=== PATIENT | female | born 1975 | race Caucasian/White ===

== ENCOUNTER 2021-03-07 14:59 | Outpatient (REF) | payer OTHER, SELFPAY ==
[2021-03-07 15:38] LABS: MANUAL DIFF FLAG NO
[2021-03-07 15:47] LABS: Basophils Percent Auto 0.8 % (0-2); Eosinophils Absolute Auto 0.1 X10*3/uL (0.0-0.4); Eosinophils Percent Auto 1.4 % (0-4); Hematocrit 42.6 % (37-47); Hemoglobin 13.8 g/dl (12.0-16.0); Imm Gran Abs Auto 0.01 X10*3/uL (0.00-0.03); Imm Gran Pct Auto 0.2 % (0.0-0.4); Lymphocytes Absolute Auto 1.4 X10*3/uL (1.2-4.9); Lymphocytes Percent Auto 28.3 % (20-40); Mean Corpuscular HGB Conc 32.4 g/dl (31.0-35.0); Mean Corpuscular Hemoglobin 30.9 pg (27.0-33.0); Mean Corpuscular Volume 95.5 fL (80-98); Mean Platelet Volume 11.2 fL (9.4-12.3); Monocytes Absolute Auto 0.4 X10*3/uL (0.1-1.2); Monocytes Percent Auto 7.9 % (2-11); Neutrophils Percent Auto 61.4 % (45-73); Platelet Count 221 X10*3/uL (160-400); Red Blood Count 4.46 X10*6/uL (4.20-5.50); Red Cell Distribution Width 12.3 % (11.0-16.0)
[2021-03-07 16:18] LABS: Calcium 9.7 mg/dL (8.4-10.2); Iron 135 mcg/dL (30-160); Percent Iron Saturation 41 % (15-50); Total Iron Binding Capacity 329 mcg/dL (228-428); Unsaturated Iron Binding 194 ug/dL
[2021-03-07 16:41] LABS: Ferritin 98 ng/mL (10-250); Thyroid Stimulating Hormone 0.48 uIU/mL (0.32-4.0); Vitamin D 25-OH Total 33.5 ng/mL (>30)
[2021-03-07 16:45] LABS: Folate 16.3 ng/mL (> or = 4.0); Vitamin B12 261 pg/mL (200-900)
[2021-03-07 17:22] LABS: T4 Thyroxine 6.6 ug/dL (4.5-12.0)
[2021-03-11 12:12] LABS: Triiodothyronine T3 Reverse 17 ng/dL (8-25)
== END 2021-03-07 15:00 | disposition home or self-care (01) ==
LOC: HO.LAB 14:59
PROVIDERS: Visit Provider Psychiatry & Neurology Neurology
DX: G43.909 Migraine, unspecified, not intractable, without status migrainosus (principal)
CPT/HCPCS: 36415; 82306; 82310; 82607; 82728; 82746; 83540; 84436; 84443; 84482; 85025; 86140

== ENCOUNTER 2023-04-27 10:48 | Outpatient (REF) | payer OTHER, SELFPAY ==
[2023-04-27 11:09] LABS: MANUAL DIFF FLAG NO
[2023-04-27 11:53] LABS: Basophils Percent Auto 0.6 % (0-2); Eosinophils Absolute Auto 0.1 X10*3/uL (0.0-0.4); Eosinophils Percent Auto 1.3 % (0-4); Hemoglobin 12.9 g/dl (12.0-16.0); Imm Gran Abs Auto 0.01 X10*3/uL (0.00-0.03); Imm Gran Pct Auto 0.2 % (0.0-0.4); Lymphocytes Absolute Auto 1.3 X10*3/uL (1.2-4.9); Lymphocytes Percent Auto 27.8 % (20-40); Mean Corpuscular HGB Conc 33.1 g/dl (31.0-35.0); Mean Corpuscular Hemoglobin 31.4 pg (27.0-33.0); Mean Corpuscular Volume 94.9 fL (80.0-98.0); Mean Platelet Volume 11.2 fL (9.4-12.3); Monocytes Absolute Auto 0.4 X10*3/uL (0.1-1.2); Monocytes Percent Auto 8.6 % (2-11); Neutrophils Absolute Auto 2.9 x10*3/uL (2.0-8.3); Neutrophils Percent Auto 61.5 % (45-73); Platelet Count 228 X10*3/uL (160-400); Red Blood Count 4.11 X10*6/uL (4.20-5.50); Red Cell Distribution Width 12.1 % (11.0-16.0); White Blood Count 4.7 X10*3/uL (4.8-10.8)
[2023-04-27 12:40] LABS: Anion Gap 10 (12-20); Blood Urea Nitrogen 11 mg/dL (9-16); Calcium 9.7 mg/dL (8.4-10.2); Carbon Dioxide 28 mmol/L (22-29); Chloride 106 mmol/L (96-108); Estimated Glomerular Filt Rate > 60; Glucose Random 89 mg/dL (60-115); Sodium 140 mmol/L (135-145)
[2023-04-27 12:50] LABS: T4 Thyroxine 7.4 ug/dL (4.5-12.0); Thyroid Stimulating Hormone 0.49 uIU/mL (0.32-4.0)
== END 2023-04-27 10:49 | disposition home or self-care (01) ==
LOC: HO.LAB 10:48
PROVIDERS: Visit Provider Psychiatry & Neurology Neurology
DX: E03.9 Hypothyroidism, unspecified (principal)
CPT/HCPCS: 36415; 80048; 84436; 84443; 85025

== ENCOUNTER 2023-08-11 14:13 | Outpatient (REF) | payer OTHER, SELFPAY ==
[2023-08-11 16:08] LABS: Ferritin 85 ng/mL (10-250); Thyroid Stimulating Hormone 0.35 uIU/mL (0.32-4.0)
[2023-08-11 16:22] LABS: Folate 13.3 ng/mL (> or = 4.0); Vitamin B12 1093 pg/mL (200-900)
[2023-08-11 20:47] LABS: Erythrocyte Sedimentation Rate 8 MM/HR (0-20)
[2023-08-13 04:53] LABS: Lyme Abs Screen <0.90 index
[2023-08-16 10:38] LABS: Anti Nuclear Antibody Screen NEGATIVE (NEGATIVE)
== END 2023-08-11 14:14 | disposition home or self-care (01) ==
LOC: HO.LAB 14:13
PROVIDERS: Visit Provider Psychiatry & Neurology Neurology
DX: G37.9 Demyelinating disease of central nervous system, unspecified (principal); D64.9 Anemia, unspecified; E03.9 Hypothyroidism, unspecified
CPT/HCPCS: 36415; 82550; 82607; 82728; 82746; 84443; 85652; 86038; 86140; 86617; 86618

== ENCOUNTER 2024-03-08 14:54 | Outpatient (REF) | payer OTHER, SELFPAY ==
[2024-03-08 15:22] LABS: MANUAL DIFF FLAG NO
[2024-03-08 15:41] LABS: Basophils Percent Auto 0.8 % (0-2); Eosinophils Absolute Auto 0.1 X10*3/uL (0.0-0.4); Eosinophils Percent Auto 1.5 % (0-4); Hematocrit 40.9 % (37.0-47.0); Hemoglobin 13.5 g/dl (12.0-16.0); Imm Gran Abs Auto 0.01 X10*3/uL (0.00-0.03); Imm Gran Pct Auto 0.2 % (0.0-0.4); Lymphocytes Absolute Auto 1.8 X10*3/uL (1.2-4.9); Lymphocytes Percent Auto 34.1 % (20-40); Mean Corpuscular Hemoglobin 30.6 pg (27.0-33.0); Mean Corpuscular Volume 92.7 fL (80.0-98.0); Mean Platelet Volume 10.4 fL (9.4-12.3); Monocytes Absolute Auto 0.5 X10*3/uL (0.1-1.2); Monocytes Percent Auto 8.8 % (2-11); Neutrophils Absolute Auto 2.9 x10*3/uL (2.0-8.3); Neutrophils Percent Auto 54.6 % (45-73); Platelet Count 259 X10*3/uL (160-400); Red Blood Count 4.41 X10*6/uL (4.20-5.50); Red Cell Distribution Width 12.1 % (11.0-16.0); White Blood Count 5.3 X10*3/uL (4.8-10.8)
[2024-03-08 16:19] LABS: Alanine Aminotransferase 23 U/L (0-31); Albumin Level 4.6 g/dL (3.5-5.0); Alkaline Phosphatase 74 U/L (39-117); Aspartate Amino Transferase 18 U/L (5-31); Bilirubin Direct 0.1 mg/dL (0.0-0.5); Bilirubin Total 0.4 mg/dL (0.0-1.0); Total Protein 7.7 g/dL (6.5-8.0)
[2024-03-08 16:34] LABS: T4 Thyroxine 8.3 ug/dL (4.5-12.0)
[2024-03-08 16:35] LABS: Erythrocyte Sedimentation Rate 14 MM/HR (0-20)
[2024-03-08 16:48] LABS: Folate 13.7 ng/mL (> or = 4.0); Vitamin B12 1449 pg/mL (200-900)
[2024-03-09 21:22] LABS: Lyme Abs Screen <0.90 index
[2024-03-10 15:09] LABS: Anti Nuclear Antibody Screen NEGATIVE (NEGATIVE)
== END 2024-03-08 14:55 | disposition home or self-care (01) ==
LOC: HO.LAB 14:54
PROVIDERS: Visit Provider Psychiatry & Neurology Neurology
DX: G43.709 Chronic migraine without aura, not intractable, without status migrainosus (principal); B02.9 Zoster without complications; D51.0 Vitamin B12 deficiency anemia due to intrinsic factor deficiency
CPT/HCPCS: 36415; 80076; 82607; 82746; 84436; 85025; 85652; 86038; 86617; 86618

== ENCOUNTER 2025-07-12 12:08 | Outpatient (REF) | payer OTHER, SELFPAY ==
[2025-07-12 15:33] LABS: Iron 106 mcg/dL (30-160); Percent Iron Saturation 39 % (15-50); Total Iron Binding Capacity 273 mcg/dL (228-428); Unsaturated Iron Binding 167 ug/dL
[2025-07-12 15:42] LABS: Ferritin 136 ng/mL (10-250)
[2025-07-13 05:58] LABS: Lyme Abs Screen <0.90 index
[2025-07-19 11:48] LABS: Anti Nuclear Antibody Screen NEGATIVE (NEGATIVE)
== END 2025-07-12 12:09 | disposition home or self-care (01) ==
LOC: HO.LAB 12:08
PROVIDERS: Referring Provider Internal Medicine; Visit Provider Psychiatry & Neurology Neurology
DX: Z01.84 Encounter for antibody response examination (principal); G43.709 Chronic migraine without aura, not intractable, without status migrainosus; M79.7 Fibromyalgia; G93.32 Myalgic encephalomyelitis/chronic fatigue syndrome; Z79.899 Other long term (current) drug therapy; Z79.82 Long term (current) use of aspirin
CPT/HCPCS: 36415; 82728; 83540; 84443; 85652; 86038; 86039; 86141; 86617; 86618

== ENCOUNTER 2025-07-12 12:08 | Outpatient (AMB) | payer OTHER, MEDICAID, SELFPAY ==
--- NOTE | 2025-07-12 12:58 | MHC.OFFVIS ---
Intake Visit Reasons: 5M MIGRAINE Allergies ondansetron (From Zofran) Allergy (Unknown, Verified 06/07/25 11:45) Unknown prochlorperazine (From Compazine) Allergy (Unknown, Verified 06/07/25 11:45) Unknown Medication List - Last Reconciled 07/12/25 by Beatrice Gordon MD pauqeihoem-[id number]-[id number] 50-325-40 mg 1 tab PO Q8H 30 days cyanocobalamin (vitamin B-12) 1,000 mcg subcut QWEEK lorazepam 1 mg PO BID PRN 30 days onabotulinumtoxinA (Botox) IM ubrogepant (Ubrelvy) mg PO HPI Comments Details: 49 yr woman with chronic migraines. She comes in with multiple complaints of feeling anxious and nervous having difficulty driving feeling things moving too fast also feeling hot and and frantic and does not know if it is psychological or something else is going on. She had a hormones tested which apparently were unremarkable she is not sure if she had her thyroid checked. Some of her inflammatory markers were elevated in the past but have not been checked recently. She is also losing her hair. Sleep is disturbed and she is having nightmares and sleep is broken up. Appetite is okay but she feels nauseated a lot. No change in her medications. Current migraine frequency is increased with 2 bad ones a month and most days she feels she might start to have a migraine. The Ubrelvy p.r.n. is taking longer to work. She has not had a Botox in 2 years. She is getting a lot of joint pains also. She gets a tention type headache about 4 days a week [facility] Medical History (Updated 07/12/25 @ 13:05 by Beatrice Gordon MD) Demyelinating disease Hypothyroidism Anxiety Chronic fatigue Tension headache Dizziness Fibromyalgia Hallucinations Migraine Review of Systems Const Details: ?Sleep:? Difficulty getting to sleepdenies.? Difficulty maintaining sleepdenies?.? Urge to move legsdenies.? Teeth grindingdenies.? Shouting or Kicking during sleepdenies.? Abnormal behavior during sleepdenies.? Excessive sleepdenies.? Snoringdenies.? Daytime sleepinessdenies. ???General/Constitutional:? Change in appetitedenies.? Chillsdenies.? Fatiguedenies.? Feverdenies.? Weight gaindenies.? Weight lossadmits. ???Ophthalmologic:? Blurred visiondenies.? Diminished visual acuitydenies. ???ENT:? Stuffinessdenies.? Decreased hearingdenies.? Dry mouthdenies.? Ear paindenies.? Nosebleeddenies.? Ringing in the earsdenies.? Sinus paindenies.? Sore throatdenies.? Swollen glandsdenies. ???Endocrine:? Cold intolerancedenies.? Excessive thirstdenies.? Frequent urinationdenies.? Heat intolerancedenies. ???Respiratory:? Shortness of breathdenies.? Chest paindenies.? Coughdenies. ???Breast:? Breast lumpdenies.? Nipple dischargedenies. ???Cardiovascular:? Chest pain at restdenies.? Chest pain with exertiondenies.? Claudicationdenies.? Dizzinessdenies.? Fluid accumulation in the legsdenies.? Irregular heartbeatdenies.? Palpitationsdenies. ???Gastrointestinal:? Abdominal paindenies.? Constipationdenies.? Diarrheadenies.? Difficulty swallowingdenies.? Heartburndenies.? Nauseadenies.? Rectal bleedingdenies. ???Hematology:? Easy bruisingdenies.? Prolonged bleedingdenies. ???Genitourinary:? Frequent urinationdenies.? Urgencydenies.? Incontinencedenies.? Erectile Dysfunctiondenies. ???Musculoskeletal:? Neck paindenies.? Back paindenies.? Muscle achesdenies.? Painful jointsdenies.? Sciaticadenies.? Weaknessdenies. ???Podiatric:? Difficulty walkingdenies.? Foot numbnessdenies. ???Neurologic:? Difficulty swallowingdenies.? Balance difficultydenies.? Coordinationnormal.? Difficulty speakingdenies.? Dizzinessdenies.? Faintingdenies.? Gait abnormalitydenies.? Headacheadmits.? Loss of strengthdenies.? Loss of use of extremitydenies.? Low back paindenies.? Memory lossdenies.? Seizuresdenies.? Ticsdenies.? Tingling/Numbnessdenies.? Transient loss of visiondenies.? Tremordenies. ???Psychiatric:? Anxietyadmits.? Auditory/visual hallucinationsdenies.? Delusionsdenies.? Depressed mooddenies.? Stressorsdenies.? Substance abusedenies.? Suicidal thoughtsdenies. Physical Exam Neuro Other: Neurological: Abnormal neurological findings:??none.?Mental Status:??alert and oriented X 3,?Normal attention, orientation, memory and affect.?Cranial Nerves:??Pupils are equal, round and reactive to light. Fundoscopy shows normal disc bilaterally. External occular muscles are intact. Visual mora are full, no ptosis. Face is symmetrical, no facial weakness or droop. Facial sensations are normal. Tongue protrudes in midline. Palate elevates symmetrically. Shoulder shrugging is normal..?Motor Examination:??Normal muscle tone, bulk and strength,?No atrophy or fasciculations,?No drift of the extended upper extremities,?Deep tendon reflexes are 2+?,?Plantars are flexor?.?Motor Strength:?Proximal Muscles (out of 5):5Distal Muscles (out of 5):5Neck Flexors (out of 5):5Neck Extensors (out of 5):5Deltoid (out of 5):5Biceps (out of 5):5Triceps (out of 5):5Serratus Anterior (out of 5):5Wrist Extensors (out of 5):5APB (out of 5):5Finger Spread (out of 5):5Ileopsoas (out of 5):5Quadriceps (out of 5):5Hamstrings (out of 5):5Tibialis Anterior (out of 5):5Peronei (out of 5):5EDB (out of 5):5Gastrocnemius (out of 5):5Straight Leg Raising:??90 degrees.?Sensory Exam:??Normal light touch, temperature, pinprick, vibration and joint-position sensations?,?Rhomberg sign is absent.?Coordination:??no ataxia,?no titubation,?hbryzy-cr-bsfs, qttd-aizw-yfas test and rapid alternating movements were normal.?Gait Exam:??Within normal limits.?Cerebellar Signs:??Gqbyao-zh-ggcb and hokd-au-cxvb is normal,?no dysdiadochokinesia?.?Extrapyramidal System:??No tremor, rigidity with normal facial expressions,?No bradykinesia, no bradyphrenia. Normal arm swing and posture. No propulsion or retropulsion.?Speech:??Normal,?no dysphasia or dysarthria..? Mini Mental Status Exam: Level of Consciousness:??Alert.?Orientation:??Knows correct year, month, date, day and season,?Knows correct city, county and state. Knows correct location and floor.?Registration:??Able to register 3 objects.?Attention:??Serial 7's performed accurately.?Recall:??Able to recall 3 out of 3 objects.?Language:??Normal spontaneous speech, fluency, repetition,naming, comprehension, reading and writing.?Total Score:??.? Assessment & Plan Assessment & Plan (1) Chronic migraine w/o aura w/o status migrainosus, not intractable: Code(s): G43.709 - Chronic migraine without aura, not intractable, without status migrainosus Category: Medical (2) Chronic fatigue syndrome: Code(s): G93.32 - Myalgic encephalomyelitis/chronic fatigue syndrome Category: Medical (3) Fibromyalgia: Code(s): M79.7 - Fibromyalgia Category: Medical Plan labs. Authorization for 200 units Botox. Book with Elizabeth if I am not here Orders: Orders CRP High Sensitivity Today G93.32 - Myalgic encephalomyelitis/chronic fatigue syndrome, M79.7 - Fibromyalgia TSH reflex Free T4 Today M79.7 - Fibromyalgia Erythrocyte Sedimentation Rate Today G93.32 - Myalgic encephalomyelitis/chronic fatigue syndrome, M79.7 - Fibromyalgia Ferritin Today M79.7 - Fibromyalgia IRON PROFILE Today M79.7 - Fibromyalgia KARYN Reflex Titer and Pattern Today M79.7 - Fibromyalgia Lyme IgG/IgM w/reflex to WB Today G93.32 - Myalgic encephalomyelitis/chronic fatigue syndrome, M79.7 - Fibromyalgia Medications: New onabotulinumtoxinA (Botox) 200 units IM ONCE 1 ea 5RF migraine 90 days G43.709 - Chronic migraine without aura, not intractable, without status migrainosus ubrogepant (Ubrelvy) 100 mg PO ONCE 14 tabs 5RF 30 days Refilled lorazepam 1 mg PO BID PRN 60 tabs 0RF anxiety 30 days arbnqthrqs-iircnygbcxxiw-sqzo 50-325-40 mg 1 tab PO Q8H 20 tabs 2RF headache 30 days Coding Level of Care Code Est Pt Level 4 (22336) Diagnoses Chronic migraine w/o aura w/o status migrainosus, not intractable G43.709 Chronic fatigue syndrome G93.32 Fibromyalgia M79.7
== END 2025-07-12 13:26 | disposition home or self-care (01) ==
LOC: HO.HSM 12:09
PROVIDERS: Referring Provider Internal Medicine; Visit Provider Psychiatry & Neurology Neurology
DX: G43.709 Chronic migraine without aura, not intractable, without status migrainosus (principal); G93.32 Myalgic encephalomyelitis/chronic fatigue syndrome; M79.7 Fibromyalgia
CPT/HCPCS: 99214